=== PATIENT | female | born 1995 | race Caucasian/White ===

== ENCOUNTER 2018-02-06 06:30 | Day surgery (SDC) | payer BC ==
[2018-02-06] MEDS: CEFAZOLIN 2 GM/50 ML (PMX) 50 ML IVPB (07:00)
[2018-02-06] MEDS: SOD CHLORIDE 0.9% 1,000 ML IV (07:00)
[2018-02-06] MEDS ORDERED: MIDAZOLAM 1 MG/ML 2 ML INJ (08:54)
[2018-02-06] MEDS ORDERED: FENTAnyl 50 MCG/ML VIAL (08:54)
[2018-02-06] MEDS: BUPIVACAINE 0.25% (MPF) 30 ML INJ (09:24)
[2018-02-06] MEDS ORDERED: IBUPROFEN 800 MG TAB PO (09:30)
[2018-02-06] MEDS ORDERED: CEFAZOLIN 1 GM INJ (09:31)
[2018-02-06] MEDS ORDERED: PROPOFOL 20 ML (09:31)
[2018-02-06] MEDS ORDERED: LIDOCAINE 2% (SDV) 5 ML INJ (09:31)
[2018-02-06] MEDS ORDERED: ONDANSETRON 4 MG INJ (09:32)
[2018-02-06] MEDS ORDERED: HYDROmorphONE 1 MG/5 ML IV SYRINGE IV ×2 (10:00)
[2018-02-06] MEDS ORDERED: DIPHENHYDRAMINE 50 MG INJ IV (10:00)
[2018-02-06] MEDS ORDERED: FENTAnyl 50 MCG/ML VIAL IV (10:00)
[2018-02-06] MEDS: ONDANSETRON 4 MG INJ IV (10:45)
[2018-02-06] MEDS: MEPERIDINE 25 MG INJ IV (10:45)
== END 2018-02-06 11:58 | disposition home or self-care (01) ==
LOC: SDS 06:30
DX: M67.431 Ganglion, right wrist (principal)
CPT/HCPCS: 14020; 88304